=== PATIENT | male | born 1960 | race Caucasian/White ===

== ENCOUNTER 2019-09-22 17:52 | Emergency (ER) | payer OTHER ==
[~2019-09-22] VITALS: Ht 180.3 cm; Wt 72.7 kg
[2019-09-22 18:05] VITALS: BP 118/77
== END 2019-09-22 20:57 | disposition home or self-care (01) ==
LOC: ER 17:52
DX: S00.83XA Contusion of other part of head, initial encounter (principal); Z88.2 Allergy status to sulfonamides; W22.8XXA Striking against or struck by other objects, initial encounter; Y93.89 Activity, other specified; Y92.89 Other specified places as the place of occurrence of the external cause; Y99.8 Other external cause status
CPT/HCPCS: 99281